=== PATIENT | female | born 1980 | race African-American/Black ===

== ENCOUNTER 2024-08-02 20:02 | Emergency (ER) | payer OTHER, SELFPAY ==
[2024-08-02 20:04] VITALS: BP 151/88
[2024-08-02 20:28] LABS: % Eosinophils 5.3 % (0-6); % Immature Granulocytes 0.1 % (0-0.5); % Lymphocytes 45.1 % (20.5-51.1); % Monocytes 7.2 % (1.7-9.3); % Neutrophils 41.3 % (42.2-75.2); Absolute Basophils 0.1 10^3/uL (0-0.2); Absolute Eosinophils 0.4 10^3/uL (0-0.7); Absolute Lymphocytes 3.6 10^3/uL (1.2-3.4); Absolute Monocytes 0.6 10^3/uL (0.1-0.6); Absolute Neutrophils 3.3 10^3/uL (1.4-6.5); Hematocrit 37.1 % (37.0-47.0); Hemoglobin 13.1 g/dL (12.0-16.0); Mean Corp Hgb Conc. 35.3 g/dL (33.0-37.0); Mean Corpuscular Volume 87.9 fL (81.0-99.0); Mean Platelet Volume 10.6 fL (7.4-10.4); Nucleated Red Blood Cells % 0 %; Platelet Count 220 10^3/uL (130-400); Red Blood Cell Count 4.22 10^6/uL (4.20-5.40); Red Cell Dist. Width 12.9 % (11.5-14.5)
[2024-08-02 20:48] LABS: ALT (SGPT) 14 U/L (0-35); AST (SGOT) 20 U/L (14-36); Albumin 4.6 g/dl (3.5-5.0); Alkaline Phosphatase 68 U/L (38-126); Blood Urea Nitrogen 13 mg/dl (7-17); Calcium 10.1 mg/dl (8.4-10.2); Carbon Dioxide 24 mmol/L (22-30); Chloride 104 mmol/L (98-107); Glucose 104 mg/dl (70-99); Sodium 139 mmol/L (135-145); Total Bilirubin 0.4 mg/dl (0.2-1.3); Total Protein 7.3 g/dl (6.3-8.2); eGFR > 60.00
[2024-08-02 20:50] LABS: Lipase 55 U/L (23-300)
--- NOTE | 2024-08-02 22:57 | ED.GENMED ---
History of Present Illness
General
Chief Complaint: Abdominal Pain
Source: patient
Exam Limitations: none
Time Seen by Provider: 08/02/24 22:27
Nursing documentation reviewed up to this point in time: agreed with
History of Present Illness
History of Present Illness:
44-year-old female pain in her upper abdomen after drinking wine last evening she got sweaty had to lay on the floor, uses Motrin occasionally, she had a hysterectomy, not much of a drinker has had some weight loss over the past few years which was
intentional is concerned because he does have a family history of cancer
Past History
Past History
ED Past Medical History: None
ED Past Surgical History: Gynecological (hysterectomry)
Social History
Tobacco: Non-smoker
Alcohol: Occasional
Drug: None
Personal:
Living: with family
Employment: Employed
Family History
Family History: Unable to obtain (Breast and GI cancer)
Review of Systems
Review of Systems
All Other Systems: Not applicable
Constitutional: Reports weight loss (Intentional 50 pounds over 3 years); Denies fatigue, night sweats or chills
EENT: Reports no symptoms
Respiratory: Reports no symptoms
Cardiac: Reports no symptoms
ABD/GI: Reports abdominal pain; Denies nausea, diarrhea or constipated
: Reports no symptoms
Musculoskeletal: Reports no symptoms
Skin: Reports no symptoms
Neurological: Reports no symptoms
Endocrine: Reports no symptoms
Phy Exam
Physical Exam
Physical Exam:
Physical Exam
General: no apparent distress, not acutely ill
Neck: No jaundice
Heart: s1/s2 regular rate and rhythm, no murmur. equal radial pulses.
Lungs: no acute respiratory distress. clear bilaterally
Abdomen: Soft mild epigastric and right upper quadrant tender
Neuro: alert and oriented. no focal neurological deficits
Skin: no rash
Psychiatric: well kept. interactive and cooperative
Extremities: no edema.
Course
Orders/Labs/Results
Orders:
Orders
08/02/24 20:18
Complete Blood Count/With Diff Urgent
Comprehensive Metabolic Panel Urgent
Lipase Urgent
08/02/24 22:49
Add On- LAB Urgent
Tests Added?: lipase
Electrocardiogram (*1) Stat
Reason for Study: Abdominal Pain
EKG- Treatment ONCE
Mag Hydrox/Al Hydrox/Simeth [Maalox] 30 ml Phenobarb/Hyoscy/Atropine/Scop [] 10 ml PO NOW
US Abdomen Complete/Upper Urgent
Comment:
Reason For Exam: pain
08/02/24 23:12
Phenobarb/Hyoscy/Atropine/Scop [] 10 ml .ROUTE .STK-MED ONE
08/02/24 23:13
Mag Hydrox/Al Hydrox/Simeth [Maalox] 30 ml .ROUTE .STK-MED ONE
08/02/24 23:37
Troponin I Urgent
Abnormal Lab Results
08/02/24
20:18
MPV 10.6 H fL
(7.4-10.4)
Absolute Lymphs (auto) 3.6 H 10^3/uL
(1.2-3.4)
Neutrophils % 41.3 L %
(42.2-75.2)
Glucose 104 H mg/dl
(70-99)
08/02/24 20:18
08/02/24 20:18
Vital Signs
Initial and Last Documented VS:
Initial Vital Signs
Temp Pulse Resp BP Pulse Ox
98 F 71 16 151/88 96
08/02/24 20:04 08/02/24 20:04 08/02/24 20:04 08/02/24 20:04 08/02/24 20:04
Last Documented Vital Signs
Temp Pulse Resp BP Pulse Ox
98 F 53 18 137/85 99
08/02/24 20:04 08/02/24 23:39 08/02/24 23:39 08/02/24 23:39 08/02/24 23:39
MDM/Problems Addressed
Differential Diagnosis Includes:
Gastritis biliary colic pancreatitis less likely ACS
MDM/Problems Addressed:
Abdominal pain
*Radiology
Radiology exam reviewed: radiology read reviewed
*EKG
Interpreted by ED Provider?: Yes
Interpretation: normal
Comparison EKG: no comparison EKG present
Heart Rate: 78
Rate: normal
Rhythm: sinus
Ischemia: no ischemia
*[employer] Interpretation
Rate: normal
Heart Rate: 78
Rhythm: sinus
*Critical Care Note
Total Time (30-74mins, 75-104mins- exclusive of procedures): Not Applicable
Update Note
Update Note:
Update, labs noted EKG no troponin noted ultrasound noted patient feeling better, will discharge on a PPI GI follow-up ER for worsening symptoms
ED Attending Note
-
Portions of this chart may have been created with voice recognition software.� Occasional wrong word or��sound alike� substitutions may have occurred due to the inherent limitations of voice recognition software.
Discharge Plan
Departure
Patient Disposition: Home (Routine Discharge)
Date of Disposition: 08/03/24
Time of Disposition: 00:13
Patient with high blood pressure during this ER visit?: No
Condition: Good
Covid-19: Not Applicable
Discharge Problem:
Abdominal pain
Instructions: Gastritis (DC), Abdominal Pain
Prescriptions:
New
pantoprazole [Protonix] 40 mg tablet,delayed release (DR/EC)
40 mg PO DAILY Qty: 30 0RF
calcium carbonate [Tums Ultra] 400 mg calcium (1,000 mg) tablet,chewable
400 mg PO Q4H PRN (Reason: dyspepsia) Qty: 30 0RF
Referrals:
PRIVATE,PHYSICIAN [Family Provider] -
Kenisha Pearl, DO [Active] - Next open appointment
Interventions
Interventions:
*Risk Screen - Suicide Last Done: 08/02/24 20:04
*General Assessment Last Done: 08/02/24 20:04
*Neglect/Abuse Screening Last Done: 08/02/24 20:04
*ED COVID-19 Vaccine History Last Done: 08/02/24 20:04
TK-Pnsqmp-Lsfbrxeiwa Assessment Last Done: 08/02/24 23:39
Discharge Date and Time
Print Language: SWEDISH
[2024-08-02] MEDS: MAALOX 40 PO (23:32)
[2024-08-02 23:39] VITALS: BP 137/85
[2024-08-03 00:08] LABS: Troponin I < 0.012 ng/ml
== END 2024-08-03 00:48 | disposition home or self-care (01) ==
LOC: EMR 20:02
PROVIDERS: EMERGENCY PHYSICIAN Emergency Medicine
DX: R10.9 Unspecified abdominal pain (principal)
CPT/HCPCS: 99284; 76700; 80053; 83690; 84484; 85025; 93005